=== PATIENT | female | born 1990 | race Two or more races ===

== ENCOUNTER 2018-01-09 22:45 | Inpatient (IN) | END 2018-01-13 13:10 | disposition home or self-care (01) | DRG 637 ==

== ENCOUNTER 2018-06-04 20:05 | Inpatient (IN) | END 2018-06-10 17:46 | disposition home or self-care (01) | DRG 871 ==

== ENCOUNTER 2018-07-25 08:12 | Day surgery (SDC) | END 2018-07-25 13:33 | disposition home or self-care (01) ==

== ENCOUNTER 2019-04-02 09:00 | Observation (INO) | payer MEDICARE, OTHER ==
[2019-04-01 18:47] VITALS: BMI 27.2
[~2019-04-02] VITALS: Ht 154.9 cm; Wt 64.7 kg
[2019-04-02] VITALS (43 sets, daily range): BP systolic 95–177; BP diastolic 47–107; PULSE 78–100; RESP 11–25; Ht 154.9 cm; Wt 64.7 kg
[~2019-04-02 09:00] MED LIST: FLUD0.1T10 PO; FOLI-49 PO; INSU100I12 SQ; INSU100I33 SC; LORA10TA3 PO; MIDO10TA PO
[2019-04-02] MEDS ORDERED: HEPARIN 1000 UNITS/ML 10 ML INJ ONE (09:50)
[2019-04-02] MEDS ORDERED: THROMBIN 5000 UNIT VIAL ONE (09:50)
[2019-04-02] MEDS ORDERED: GELATIN SIZE 100 SPONGE ONE (09:50)
[2019-04-02] MEDS ORDERED: LIDOCAINE 1% (MPF) 30 ML INJ ONE (09:50)
[2019-04-02] MEDS ORDERED: BUPIVACAINE 0.25% (MPF) 30 ML INJ ONE (09:50)
[2019-04-02] MEDS ORDERED: INSU100I12 SQ (09:57)
[2019-04-02] MEDS ORDERED: INSU100I33 SC (09:57)
[2019-04-02] MEDS ORDERED: CALC667C PO (09:58)
[2019-04-02] MEDS ORDERED: GLUCAGON 1 MG INJ IM PRN (10:30)
[2019-04-02] MEDS ORDERED: DEXTROSE 50% 50 ML SYRINGE IV PRN ×2 (10:30)
[2019-04-02] MEDS ORDERED: GLUCOSE GEL 15 GRAM TUBE PO PRN ×2 (10:30)
[2019-04-02] MEDS ORDERED: GLUCOSE GEL 15 GRAM TUBE BUCCAL PRN (10:30)
[2019-04-02] MEDS ORDERED: INSULIN REGULAR, HUMAN 100 UNIT/1 ML 3ML VIAL SC ONE (10:30)
--- NOTE | 2019-04-02 10:35 | PREAC ---
Date/Time of Note Date/Time of Note DATE: 04/02/19 TIME: 10:33 Anesthesia Eval and Record Evaluation Time Pre-Procedure Interview DATE: 04/02/19 TIME: 10:33 Age 28 Sex female NPO: 8 hrs Preoperative diagnosis ESRD, Planned procedure Left Arm AV Fistula Creation Past Medical History Past Medical History: Includes Endo: Diabetes Renal: ESRD on dialysis Surgery & Anesthesia Issues No known issue Meds Anticoagulation: No Beta Madhu within 24 hr: No Reason Beta Madhu not given: Pt. not on B-Madhu Reported Medications Calcium Acetate* (Calcium Acetate*) 667 Mg Capsule, 1334 MG PO WITH MEALS, #60 CAP 04/02/19 Insulin Glargine,Hum.rec.anlog (Basaglar Kwikpen U-100) 100 Unit/1 Ml Insuln.pen, 10 UNIT SC QHS, EA 04/02/19 Insulin Lispro (Humalog Kwikpen U-100) 100 Unit/1 Ml Insuln.pen, 7 UNIT SQ AC B, EA 04/02/19 Midodrine* (Midodrine*) 10 Mg Tablet, 10 MG PO TID, TAB 07/25/18 Discontinued Reported Medications Insulin Glargine,Hum.rec.anlog (Basaglar Kwikpen U-100) 100 Unit/1 Ml Insuln.pen, 22 UNIT SC QHS, EA 07/25/18 Insulin Lispro (Humalog Kwikpen U-100) 100 Unit/1 Ml Insuln.pen, 5 UNIT SQ AC MEALS, EA 07/25/18 Fludrocortisone* (Fludrocortisone*) 0.1 Mg Tablet, 0.3 MG PO DAILY, TAB 07/25/18 Loratadine* (Loratadine*) 10 Mg Tablet, 10 MG PO DAILY, #30 TAB 07/25/18 Folic Acid* (Folic Acid*) 1 Mg Tablet, 1 MG PO DAILY, TAB 07/25/18 Current Medications Miscellaneous Information 1 ea NOTE XX ; Start 04/02/19 at 10:30 Glucose (Glutose) 15 gm Q15M PRN PO DECREASED GLUCOSE; Start 04/02/19 at 10:30 Glucose (Glutose) 22.5 gm Q15M PRN PO DECREASED GLUCOSE; Start 04/02/19 at 10:30 Dextrose (D50w Syringe) 25 ml Q15M PRN IV DECREASED GLUCOSE; Start 04/02/19 at 10:30 Dextrose (D50w Syringe) 50 ml Q15M PRN IV DECREASED GLUCOSE; Start 04/02/19 at 10:30 Glucagon (Glucagen) 1 mg Q15M PRN IM DECREASED GLUCOSE; Start 04/02/19 at 10:30 Glucose (Glutose) 15 gm Q15M PRN BUCCAL DECREASED GLUCOSE; Start 04/02/19 at 10:30 Meds reviewed: Yes Allergies Coded Allergies: sulfamethoxazole (Verified Allergy, Intermediate, N/V/D, 04/02/19) trimethoprim (Verified Allergy, Intermediate, N/V/D, 04/02/19) Allergies Reviewed: Yes Labs/Studies Labs Reviewed: Reviewed by anesthesiologist test: Negative Studies: ECG (n/a), CXR (n/a) Pre-procedure Exam Last vitals Vital Signs Date Temp Pulse Resp B/P (MAP) Pulse Ox O2 O2 Flow FiO2 Time Delivery Rate 04/02/19 97.0 89 16 119/73 99 Room Air 10:18 (88) Airway: Adequate mouth opening, Adequate thyromental dist Mallampati: Mallampati II Teeth: Normal Lung: Normal Heart: Normal ASA Physical Status ASA physical status: 3 Emergency: None Planned Anesthetic General/MAC: LMA, MAC Nerve block: Brachial plexus (left) Planned Pain Management Single shot nerve block, Parenteral pain med, Local by surgeon Pre-operative Attestations Prior to commencing anesthesia and surgery, the patient was re-evaluated, there was verification of: *The patient's identity *The results of appropriate recent lab work and preoperative vital signs *The above evaluation not changing prior to induction *Anesthetic plan, risk benefits, alternative and complications discussed with patient/family; questions answered; patient/family understands, accepts and wishes to proceed. ELVIS SPICER MD April 02, 2019 10:35
[2019-04-02] MEDS ORDERED: MIDAZOLAM 1 MG/ML 2 ML INJ ONE (10:39)
[2019-04-02] MEDS ORDERED: CEFAZOLIN 1 GM INJ ONE (10:39)
[2019-04-02] MEDS ORDERED: FENTAnyl 50 MCG/ML VIAL ONE (10:39)
[2019-04-02] MEDS ORDERED: PROPOFOL 20 ML ONE (10:39)
--- NOTE | 2019-04-02 10:39 | HPN ---
Date/Time of Note Date/Time of Note DATE: 04/02/19 TIME: 10:39 Interval H&P Admission Note Pt. seen H&P reviewed: No system changes GABRIELLA BOWEN MD April 02, 2019 10:39
[2019-04-02] MEDS ORDERED: ROPIVACAINE 0.5 % 30 ML VIAL ONE (10:40)
[2019-04-02] MEDS ORDERED: METOCLOPRAMIDE 10 MG INJ IV PRN (11:00)
[2019-04-02] MEDS ORDERED: EPHEDrine 25 MG/5 ML SYG IV PRN (11:00)
[2019-04-02] MEDS ORDERED: FENTAnyl 50 MCG/ML VIAL IV PRN ×2 (11:00)
[2019-04-02] MEDS ORDERED: HYDROmorphONE 1 MG/5 ML IV SYRINGE IV PRN ×2 (11:00)
[2019-04-02] MEDS ORDERED: ONDANSETRON 4 MG INJ IV PRN (11:00)
[2019-04-02] MEDS ORDERED: MEPERIDINE 25 MG INJ IV PRN (11:00)
[2019-04-02] MEDS ORDERED: OXYCODONE/ACETAMINOPHEN (5/325) TAB PO PRN ×2 (11:00)
[2019-04-02] MEDS ORDERED: METOCLOPRAMIDE 10 MG INJ ONE (11:44)
[2019-04-02] MEDS ORDERED: ONDANSETRON 4 MG INJ ONE (11:44)
[2019-04-02] MEDS ORDERED: NA BICARBONATE 8.4% 50 ML SYG ONE (11:56)
--- NOTE | 2019-04-02 11:59 | SIPON ---
Date/Time of Note Date/Time of Note DATE: 04/02/19 TIME: 11:58 Operative Report Preoperative Diagnosis ESRD Postoperative Diagnosis Same Operation/Procedure Performed Left BC AVF Surgeon see signature line behavioral health assistant none Anesthesia: other (local) Estimated blood loss: minimal Transfusion Required none Specimen none Grafts/Implants none Complications none GABRIELLA BOWEN MD April 02, 2019 11:59
--- NOTE | 2019-04-02 12:04 | PAC ---
Date/Time of Note Date/Time of Note DATE: 04/02/19 TIME: 12:04 Post-Anesthesia Notes Post-Anesthesia Note Last documented vital signs Vital Signs Date Temp Pulse Resp B/P (MAP) Pulse Ox O2 O2 Flow FiO2 Time Delivery Rate 04/02/19 97.9 89 16 119/73 99 Room Air 12:05 (88) Activity: WNL Respiratory function: WNL Cardiovascular function: WNL Mental status: Baseline Pain reasonably controlled: Yes Hydration appropriate: Yes Nausea/Vomiting absent: Yes ELVIS SPICER MD April 02, 2019 12:04
[2019-04-02] MEDS: MIDODRINE 5 MG TAB PO SCH ×2 (14:09→20:34)
[2019-04-02] MEDS ORDERED: HEPARIN 1000 UNITS/ML 10 ML INJ CATHETER SCH (16:00)
--- NOTE | 2019-04-02 17:41 | HP ---
DATE OF ADMISSION: 04/02/2019 CHIEF COMPLAINT: End-stage renal disease, hyperkalemia, status post AV fistula. HISTORY OF PRESENT ILLNESS: This is a 28-year-old female with a past medical history of end-stage re nal disease, history of type 1 diabetes, history chronic hypertension, who was brought to [facility] to undergo a left upper extremity AV fistula creation. The patient dialyzes normal ly at [place], is on dialysis Monday, Monday, Monday. The patient had hemodialysis yesterda y. The patient came into [facility] by surgeon, Dr. Bowen and underwent creation of the left brachiocephalic AV fistula. Postoperatively, the patient was admitted to telemetry for guevara luation. In terms of patient's renal history, the patient has end-stage renal disease. The patient is on dial ysis Monday, Monday, Monday with access of PermCath. The patient denies any hemoptysis, hematemes is, hematochezia. PAST MEDICAL HISTORY: History of end-stage renal disease, history of diabetes, history of hypertensi on. PAST SURGICAL HISTORY: Status post PermCath, status post AV fistula placement. FAMILY HISTORY: No family history of kidney disease. SOCIAL HISTORY: Does not drink, smoke or do drugs. ALLERGIES: HAVE BEEN REVIEWED. MEDICATIONS: Reviewed and reconciled. REVIEW OF SYSTEMS: A 14-point review of systems conducted. Pertinent positives stated in HPI, other rico negative. PHYSICAL EXAMINATION: VITAL SIGNS: Blood pressure is 121/67, respiration 18, pulse 87, temperature 98.2. HEENT: Head is normocephalic. NECK: Supple. HEART: Regular rate. LUNGS: Show diminished breath sounds at base. ABDOMEN: Soft, nontender to palpation without rebound or guarding. EXTREMITIES: Negative for clubbing, cyanosis. No edema. DERMATOLOGIC: No rashes. MUSCULOSKELETAL: The patient's left upper extremity has a noted AV fistula, positive thrill. The pa tient's pulses in left radial and ulnar arterial pulses are palpable. NEUROLOGIC: No focal deficits. LABORATORY DATA: Have been reviewed. ASSESSMENT AND PLAN: This is a 28-year-old female presenting with: 1. Status post left brachiocephalic AV fistula formation. The patient is postop day #0. Plan is to monitor closely. Continue to monitor radial and ulnar pulses. Continue dressing changes. We will follow up with vascular surgery. 2. End-stage renal disease on hemodialysis, stable. Dialyze for 3 hours of 2k bath, calcium 2.5. 3. Hyperkalemia. The patient will be dialyzed on low potassium bath. 4. Anemia. Monitor hemoglobin and hematocrit levels. 5. Diabetes type 1. Continue current insulin regimen. 6. Chronic hypertension. Continue midodrine. 7. Gastrointestinal and deep venous thrombosis prophylaxis. Please note, an addition of 30 minutes in ciak-yz-gmiz time with the patient, discussing advanced dir ectives and code status. The patient is full code. Dictated By: TAY GRIGSBY DO NR/NTS Conf#: [id number] DID#: [id number] CC: GABRIELLA BOWEN MD;*EndCC*
[2019-04-02] MEDS: INSULIN ASPART [NOVOLOG] 3 ML PEN SC SCH ×5 (17:55→20:37)
[2019-04-02] MEDS: CALCIUM ACETATE 667 MG CAP PO SCH (18:17)
--- NOTE | 2019-04-02 20:06 | OPR ---
DATE OF OPERATION: PREOPERATIVE DIAGNOSIS: End-stage renal disease. POSTOPERATIVE DIAGNOSIS: End-stage renal disease. PROCEDURE: Construction of left brachiocephalic AV fistula. SURGEON: Dr. Duran. ANIMAL NUTRITION CONSULTANT: None. ANESTHESIA: Local infiltration with 1% lidocaine with sedation and block given by anesthesiologist. INDICATION OF THE PROCEDURE: The patient is a 28-year-old female with end-stage renal disease, recei ving hemodialysis through a Perm-A-Cath and will require long-term hemodialysis access. The above-me ntioned procedure discussed with the patient. She understood and agreed to proceed. DESCRIPTION OF PROCEDURE: The patient was brought to the operating room after obtaining informed con sent, placed in supine position on the operating table. Block was administered by the anesthesiologi st. The incision was clean, prepped and draped in the usual sterile fashion. Local anesthetic was u sed to proceed. The skin and subcutaneous tissue in the left antecubital fossa. An oblique incision was done using 15 blade scalpel, taken down through subcutaneous tissue using the Bovie. Cephalic v ein was dissected circumferentially, ligated distally with 3-0 silk suture and transected. The vein was dilated up to 3 mm with coronary dilators with no difficulty. Brachial artery was exposed throug h the same incision using sharp dissection with the ____ scissors, controlled with vascular bulldog c lamps. A longitudinal arteriotomy was done using 11 blade scalpel and Gallegos scissors. The end of th e vein was tailored in the usual fashion. Inside anastomosis was then established using 6-0 Prolene suture in continuous running technique. Prior to completion of suture line, retrograde antegrade flu sh of the lumens of the suture line was completed. Hemostasis suture lines achieved using Gelfoam th rombin. Good thrill was achieved. Flow through the entire length of the fistula. Subcutaneous tiss ue was then closed using 3-0 Vicryl sutures. Edges of the skin were approximated together using 3-0 Monocryl in subcuticular fashion. Steri-Strips were applied as well as dry dressing. The patient wa s then transferred to recovery in stable condition. Dictated By: GABRIELLA HENDERSON/KARISHMA Conf#: [id number] DID#: [id number]
[2019-04-02] MEDS ORDERED: INSULIN GLARGINE [LANTus] (100 UNITS/ML) SYG SC SCH (21:00)
[2019-04-03] VITALS (8 sets, daily range): BP systolic 84–146; BP diastolic 55–86; PULSE 78–96; RESP 16–18
[2019-04-03] MEDS ORDERED: ACCU-CHEK XX SCH (02:00)
[2019-04-03] MEDS ORDERED: ACETAMINOPHEN 325 MG TAB PO PRN (06:00)
[2019-04-03] MEDS ORDERED: ONDANSETRON 4 MG INJ IV PRN (06:00)
[2019-04-03] MEDS: MIDODRINE 5 MG TAB PO SCH ×2 (08:59→13:00)
[2019-04-03] MEDS: CALCIUM ACETATE 667 MG CAP PO SCH ×2 (09:00→11:36)
[2019-04-03] MEDS: INSULIN ASPART [NOVOLOG] 3 ML PEN SC SCH ×4 (09:00→11:37)
[2019-04-03] MEDS ORDERED: MIDODRINE 5 MG TAB PO STA (11:25)
--- NOTE | 2019-04-03 16:18 | RADRPT ---
Vent Rate: 84 bpm RR Interval: 712 msec FL Interval: 176 msec QRS Duration: 93 msec QT Interval: 388 msec QTC Interval: 460 msec P-R-T [place]: 50 - 64 - 25 degrees Sinus rhythm...normal P axis, V-rate 50- 99 Electronically Signed By: Poncho Brown
--- NOTE | 2019-04-03 22:11 | DS ---
DATE OF ADMISSION: 04/02/2019 DATE OF DISCHARGE: 04/03/2019 HOSPITAL COURSE: This is a 28-year-old female with a past medical history of end-stage renal disease , history of type 1 diabetes, history of chronic hypotension, who was brought in to [facility] and underwent creation of left upper extremity AV fistula. The patient, following the pr ocedure, was noted to be hyperkalemic and was subsequently admitted to undergo observation and hemodi alysis. The patient had hemodialysis, tolerated well. The patient also has a history of diarrhea an d colitis and is being followed by Gastroenterology and is pending further evaluation in outpatient s etting. The patient otherwise has been stable. She has chronic hypotension which she takes midodrin e for. The patient currently at this time is stable, in no acute distress, and is pending discharge home. FOLLOWUP: She will follow up with her primary care physician, her vascular surgeon, Dr. Bowen, for ev aluation of AV fistula, and the patient will also follow up today with our hemodialysis unit for dial ysis. FINAL DIAGNOSES: 1. Status post arteriovenous fistula formation. 2. End-stage renal disease. 3. Hyperkalemia, resolved. 4. Anemia. 5. Diabetes type 1. 6. Chronic hypotension. FINAL MEDICATIONS: The patient will continue home regimen. DISCHARGE CONDITION: At the time of discharge, the patient is stable, in no acute distress. Please note I spent over 30 minutes of time preparing the patient's discharge. Dictated By: TAY GRIGSBY DO NR/NTS Conf#: [id number] DID#: [id number] CC: GABRIELLA BOWEN MD;*EndCC*
== END 2019-04-03 13:36 | disposition home or self-care (01) ==
LOC: SDS 09:00 → REC 12:29 → INTOOBSV 12:29 → TEL 13:21
PROVIDERS: ADMIT Surgery; ATTEND Surgery
DX: I12.0 Hypertensive chronic kidney disease with stage 5 chronic kidney disease or end stage renal disease (principal); E10.22 Type 1 diabetes mellitus with diabetic chronic kidney disease; N18.6 End stage renal disease; Z99.2 Dependence on renal dialysis; E87.5 Hyperkalemia; D64.9 Anemia, unspecified
CPT/HCPCS: 36821; 71045; 80048; 80053; 82962; 83735; 84100; 85025; 85610; 85730; 86706; 87081; 87340; 90935; 93005; G0378; J0690; J1644; J1815; J2250; J2405; J2765; J2795; J3010; 99217